=== PATIENT | female | born 1945 | race Caucasian/White ===

== ENCOUNTER → 2018-05-08 | Day surgery (SDC) | payer MEDICARE ==
[~2018-05-08] MED LIST: ALENDRONATE SOD35 MG PO; ALPRAZOLAM0.25 MG PO; ASPIR 8181 MG PO; BACTRIM DS TAB1 EACH PO; CALTRATE 600 W1 EACH PO; DEXILANT60 MG PO; DIOVAN160 MG PO; FOLBIC TABLET1 EACH PO; GABAPENTIN100 MG PO; LEVOTHYROXINE50 MCG PO; LIDOCAINE HCL50 ML TOP; MIDAZOLAM HCL 2 MG/2 ML VIAL ONE; PEPCID20 MG PO; PLAVIX75 MG PO; PROPOFOL IV EMULSION 10 MG/ML 20 ML VIAL ONE; TRAZODONE HCL50 MG PO
== END | disposition home or self-care (01) ==
LOC: OR 13:17
PROVIDERS: ATTEND Internal Medicine
DX: K29.70 Gastritis, unspecified, without bleeding (principal); K85.90 Acute pancreatitis without necrosis or infection, unspecified; R63.4 Abnormal weight loss; K44.9 Diaphragmatic hernia without obstruction or gangrene; G25.81 Restless legs syndrome; E03.9 Hypothyroidism, unspecified; I12.9 Hypertensive chronic kidney disease with stage 1 through stage 4 chronic kidney disease, or unspecified chronic kidney disease; N18.9 Chronic kidney disease, unspecified; F41.9 Anxiety disorder, unspecified; Z01.810 Encounter for preprocedural cardiovascular examination; Z79.82 Long term (current) use of aspirin; Z79.02 Long term (current) use of antithrombotics/antiplatelets; Z86.73 Personal history of transient ischemic attack (TIA), and cerebral infarction without residual deficits
CPT/HCPCS: 43239; 93005; J2250